=== PATIENT | male | born 1945 | race Caucasian/White ===

== ENCOUNTER 2019-09-17 11:30 | Emergency (ER) | payer MEDICARE, MEDICAID ==
[~2019-09-17] VITALS: Ht 167.6 cm; Wt 75.7 kg
--- NOTE | 2019-09-17 11:33 | NUR ---
SURI. FROM [facility], C/P LEFT KNEE PAIN 07/15 PS, S/P FALL FRM WHEELCHAIR. ON ROOM AIR, BREATHING EVENLY AND UNLABORED. CONNECTED TO THE MONITOR AND PULSE OX. WILL CONTINUE TO MONITOR ACCORDINGLY.
--- NOTE | 2019-09-17 12:55 | NUR ---
[facility] ETA 1330 TRIP#[id number]
[2019-09-17] MEDS ORDERED: IBUPROFEN 600 MG TABLET PO ONE ×2 (13:00→13:08)
[2019-09-17 13:41] VITALS: BP 177/88
--- NOTE | 2019-09-17 13:41 | NUR ---
discharge patient back to [facility] in no distress. accompanied by 2 EMT.
== END 2019-09-17 13:41 ==
LOC: ER 11:37
DX: S80.02XA Contusion of left knee, initial encounter (principal); I10 Essential (primary) hypertension; E78.5 Hyperlipidemia, unspecified; N40.0 Benign prostatic hyperplasia without lower urinary tract symptoms; E11.9 Type 2 diabetes mellitus without complications; F32.9 Major depressive disorder, single episode, unspecified; Z88.0 Allergy status to penicillin; W05.0XXA Fall from non-moving wheelchair, initial encounter; Y93.89 Activity, other specified; Y92.89 Other specified places as the place of occurrence of the external cause; Y99.8 Other external cause status
CPT/HCPCS: 73502; 73564-TC

== ENCOUNTER 2021-06-14 09:13 | Emergency (ER) | payer MEDICARE, OTHER ==
[~2021-06-14] VITALS: Ht 162.6 cm; Wt 86.2 kg
[2021-06-14] MEDS ORDERED: HYDROCODONE/APAP 5/325MG TABLET PO ONE (09:30)
--- NOTE | 2021-06-14 09:31 | NUR ---
76 years old male s/p mechanical fall c/o left rib pain, denies headache, dizziness, vital stable will continue to monitor, no loc.Hx of diabetes.
[2021-06-14] MEDS ORDERED: HYDROCODONE/APAP 5/325MG TABLET ONE (09:34)
[2021-06-14] MEDS ORDERED: HYDR-4275 PO (10:05)
--- NOTE | 2021-06-14 11:06 | NUR ---
[facility] ETA 10-15 MINS.
--- NOTE | 2021-06-14 11:09 | NUR ---
REPORT GIVEN TO NURSE LEV FROM BEATRIZ SANCHEZ
[2021-06-14 11:13] VITALS: BP 143/71
--- NOTE | 2021-06-14 11:16 | NUR ---
patient awaiting for ambulance for d/c to [facility].
--- NOTE | 2021-06-14 11:27 | NUR ---
report endorsed to [facility] 22.
[2021-06-14] MEDS ORDERED: HYDR-3972 PO (13:51)
== END 2021-06-14 11:32 ==
LOC: ER 09:20
DX: R07.81 Pleurodynia (principal); I10 Essential (primary) hypertension; E78.5 Hyperlipidemia, unspecified; N40.0 Benign prostatic hyperplasia without lower urinary tract symptoms; E11.9 Type 2 diabetes mellitus without complications; F32.9 Major depressive disorder, single episode, unspecified; Z88.0 Allergy status to penicillin; W18.39XA Other fall on same level, initial encounter; Y93.01 Activity, walking, marching and hiking; Y92.89 Other specified places as the place of occurrence of the external cause; Y99.8 Other external cause status
CPT/HCPCS: 71100-TC